=== PATIENT | male | born 1975 | race African-American/Black ===

== ENCOUNTER 2020-03-19 10:17 | Emergency (ER) | payer OTHER, SELFPAY ==
[2020-03-19 10:31] VITALS: BP 123/80; PULSE 77; RESP 16; TEMP 36.4; O2SAT 99
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
== END 2020-03-19 10:58 | disposition home or self-care (01) ==
PROVIDERS: Emergency Provider Nurse Practitioner
DX: T23.252A Burn of second degree of left palm, initial encounter (principal); T23.151A Burn of first degree of right palm, initial encounter; F17.200 Nicotine dependence, unspecified, uncomplicated; X15.3XXA Contact with hot saucepan or skillet, initial encounter
CPT/HCPCS: 99212; G0463

== ENCOUNTER 2020-04-05 11:11 | Emergency (ER) | payer SELFPAY ==
[2020-04-05 11:23] VITALS: BP 127/81; PULSE 58; RESP 16; TEMP 36.4; O2SAT 100
--- NOTE | 2020-04-05 11:33 | ED.GENADULT ---
HPI - General Adult General Chief complaint: Skin/Abscess/Foreign Body Stated complaint: blisters on hands Time Seen by Provider: 04/05/20 11:34 Source: patient Mode of arrival: ambulatory Limitations: no limitations History of Present Illness HPI narrative: 44-year-old male patient presents to the [facility] with request for return to work note. Patient states he has been out of work because he has had a blister to his left hand that he has been caring for at home. Patient states he has been using cushioned Band-Aids, gel, washing with soap and water, and applying antibiotic ointment to it. Denies any fevers, chest pain, shortness of breath. Denies any pain to the area. Patient states it seems to be improving. Patient states that he does work at [employer] and is needing a return to work note to return to work tomorrow. Related Data Home Medications Medication Instructions Recorded Confirmed No Home Medications 04/05/20 04/05/20 Allergies Allergy/AdvReac Type Severity Reaction Status Date / Time aspirin Allergy Mild Verified 04/05/20 11:27 naproxen Allergy Unknown Unverified 04/05/20 11:27 ONIONS Allergy Mild Uncoded 04/05/20 11:27 GARLICA Allergy Unknown Uncoded 04/05/20 11:27 Review of Systems Review of Systems: Narrative: CONSTITUTIONAL: Denies fever, chills, or sweats. EYES: Denies visual changes, redness, or discharge. ENT: Denies rhinorrhea, congestion, sore throat, or otalgia. CARDIOVASCULAR: Denies chest pain, palpitations, or edema. RESPIRATORY: Denies cough or dyspnea. GASTROINTESTINAL: Denies abdominal pain, nausea, vomiting, or diarrhea. GENITOURINARY: Denies dysuria or hematuria. SKIN: Denies rash or itching. Positive blister to left hand on palm side MUSCULOSKELETAL: Denies back pain, joint pain, or myalgia. NEUROLOGIC: Denies headache, numbness, or weakness. PSYCHIATRIC: Denies anxiety or depression. [facility] Family History Family History Other No active medical problems Social History Social History Smoking status: Current some day smoker Alcohol intake: never Comments At the time of my signature I agree with nursing past medical history, surgical, social, and family history. There is no relevant family history pertinent to the presenting complaint. Exam Narrative: Exam Narrative: GENERAL: Well-appearing, well-nourished, and in no acute distress. HEAD: Normocephalic, atraumatic. EYES: PERRLA and EOMI. ENT: Nares clear, no rhinorrhea or epistaxis. Mucous membranes moist. NECK: Supple. No lymphadenopathy CHEST: Clear to auscultation. No respiratory distress. HEART: Regular rate and rhythm. No murmur heard. Normal peripheral pulses. ABDOMEN: Soft, nontender, nondistended, normal active bowel sounds. EXTREMITIES: Normal range of motion. No edema. SKIN: Warm, dry, no rash. Patient has approximately 1 cm round blister noted on the left hand on the palm side right under between the pinky and ring finger. There is no redness, warmth or discharge noted. There is no evidence of infection at this time. Patient has excellent range of motion. NEURO: No focal deficits. Alert and oriented x3. Course Vital Signs Vital signs: Vital Signs Temperature 36.4 C 04/05/20 11:23 Pulse Rate 58 L 04/05/20 11:23 Respiratory Rate 16 04/05/20 11:23 Blood Pressure 127/81 04/05/20 11:23 Pulse Oximetry 100 04/05/20 11:23 Temperature 36.4 C 04/05/20 11:23 Pulse Rate 58 L 04/05/20 11:23 Respiratory Rate 16 04/05/20 11:23 Blood Pressure 127/81 04/05/20 11:23 Pulse Oximetry 100 04/05/20 11:23 Vital signs reviewed. The patient has been informed that they may have pre-hypertension or Hypertension based on a BP reading in the department. I recommend that the patient call the primary care provider listed on their discharge instructions or a physician of their choice this w
== END 2020-04-05 11:44 | disposition home or self-care (01) ==
PROVIDERS: Emergency Provider Nurse Practitioner Family
DX: S60.522A Blister (nonthermal) of left hand, initial encounter (principal); X58.XXXA Exposure to other specified factors, initial encounter
CPT/HCPCS: 99211; G0463

== ENCOUNTER 2020-11-05 09:16 | Emergency (ER) | payer SELFPAY ==
[2020-11-05 09:31] VITALS: BP 131/89; PULSE 86; RESP 18; TEMP 37.2; O2SAT 99
--- NOTE | 2020-11-05 09:31 | ED.EAR ---
HPI - Ear Problem General Chief complaint: Upper Respiratory Infection Stated complaint: ear pain Source: patient and RN notes reviewed Mode of arrival: ambulatory Limitations: no limitations History of Present Illness HPI Narrative: This is a 45-year-old -[place] male that presented to urgent care today with complaints of right ear pain and sinus pressure. According to patient he developed the symptoms 2 to 3 days ago. He noted that his pain started in his right ear and migrated to his left ear. He also complains of frontal sinus pains. Patient did utilize hot Packs to his nasal area with relief temporarily he also use ibuprofen for pain with no relief. patient does have a history of cellulitis. The patient denies SOB, CP, palpitation, extremity numbness, lightheadedness, dizziness, constipation, diarrhea, chills, or fever. Related Data Allergies Allergy/AdvReac Type Severity Reaction Status Date / Time aspirin Allergy Mild Verified 04/05/20 11:27 naproxen Allergy Unknown Unverified 04/05/20 11:27 ONIONS Allergy Mild Uncoded 04/05/20 11:27 GARLICA Allergy Unknown Uncoded 04/05/20 11:27 Review of Systems Review of Systems: All systems reviewed & are unremarkable except as noted in HPI and below (10 point system review) [facility] Family History Family History Other No active medical problems Social History Social History Smoking status: Current some day smoker Alcohol intake: never Exam Narrative: Exam Narrative: GENERAL: This is a well-nourished, well-developed patient, in no apparent distress. HEAD: normocephalic, atraumatic. Ears: Bulging right ear TM, erythema and edema to the right ear canal EYES: PERRL. Sclera clear/white. Vision is grossly intact. NOSE: External nose normal with no obvious nasal discharge, nares without redness, no rhinorrhea. Frontal sinus tenderness THROAT: Mucous membranes moist, posterior pharynx clear. NECK: Neck supple, non-tender without lymphadenopathy, masses or thyromegaly. CARDIOVASCULAR: Regular rate and rhythm without murmurs, gallops, or rubs. RESPIRATORY: Clear to auscultation. Breath sounds equal bilaterally. No wheezes, rales, or rhonchi. GASTROINTESTINAL: Abdomen soft, non-tender, nondistended. Bowel sounds are active. No hepato-splenomegaly, or palpable masses. No guarding. SKIN: warm, intact with no suspicious lesions or rash, good texture and turgor. NEURO: awake, alert, and oriented to person, place and time. There were no obvious focal neurologic abnormalities. Steady gait EXTREMITIES: Normal range of motion. No edema. No calf tenderness. Negative Homans sign bilaterally. BACK: Nontender without deformity or crepitance. No flank tenderness. Course Vital Signs Vital signs: Vital Signs Temperature 98.9 F 11/05/20 09:31 Pulse Rate 86 11/05/20 09:31 Respiratory Rate 18 11/05/20 09:31 Blood Pressure 131/89 11/05/20 09:31 Pulse Oximetry 99 11/05/20 09:31 Temperature 98.9 F 11/05/20 09:31 Pulse Rate 86 11/05/20 09:31 Respiratory Rate 18 11/05/20 09:31 Blood Pressure 131/89 11/05/20 09:31 Pulse Oximetry 99 11/05/20 09:31 Medical Decision Making Differential Diagnosis Differential Diagnosis: Otitis media, otitis externa, TMJ, otitis conjunctivitis syndrome Vital Signs Vital Signs: Vital Signs Temperature 98.9 F 11/05/20 09:31 Pulse Rate 86 11/05/20 09:31 Respiratory Rate 18 11/05/20 09:31 Blood Pressure 131/89 11/05/20 09:31 Pulse Oximetry 99 11/05/20 09:31 Temperature 98.9 F 11/05/20 09:31 Pulse Rate 86 11/05/20 09:31 Respiratory Rate 18 11/05/20 09:31 Blood Pressure 131/89 11/05/20 09:31 Pulse Oximetry 99 11/05/20 09:31 Discharge Plan Discharge Clinical Impression: Otitis media Qualifiers: Otitis media type: unspecified Laterality: right Qualified Code(s):
== END 2020-11-05 10:04 | disposition home or self-care (01) ==
LOC: EXPCOLL 09:25
PROVIDERS: Emergency Provider Nurse Practitioner
DX: H66.91 Otitis media, unspecified, right ear (principal); J01.10 Acute frontal sinusitis, unspecified; F17.200 Nicotine dependence, unspecified, uncomplicated
CPT/HCPCS: 99213; G0463